=== PATIENT | female | born 1955 | race Hispanic/Latino ===

== ENCOUNTER → 2018-03-21 | Outpatient (CLI) | payer OTHER ==
--- NOTE | 2018-03-21 13:53 | Diagnostic Imaging Report ---
EXAM: CT of the abdomen and pelvis WITHOUT contrast HISTORY: Lower abdominal pain, history of renal calculus, reported history of appendectomy and hysterectomy COMPARISON: None. TECHNIQUE: The abdomen and pelvis were scanned utilizing a multidetector helical scanner. Coronal and sagittal reformats are provided. PROTOCOL: Routine IV CONTRAST: None, which partially limits evaluation of the vascular structures, solid organs and soft tissues. ORAL CONTRAST: None, which further limits sensitivity and specificity of the exam. RADIATION DOSE: Total DLP: 706.64 mGy*cm Estimated effective dose: (DLP x 0.015 x size factor) Dose modulation, iterative reconstruction, and/or weight based adjustment of the mA/kV was utilized to reduce the radiation dose to as low as reasonably achievable. COMPLICATIONS: None FINDINGS: LOWER THORAX: Mild bibasilar atelectasis. HEPATOBILIARY: No focal hepatic lesions. No biliary ductal dilatation. Numerous small peripherally calcified gallstones. No pericholecystic fat stranding. SPLEEN: No splenomegaly. PANCREAS: No focal masses or ductal dilatation. ADRENALS: No discrete adrenal nodule. KIDNEYS/URETERS: No hydronephrosis or solid mass lesions. 2 or 3 punctate calcific densities near the superior pole of the right kidney. PELVIC ORGANS/BLADDER: The urinary bladder is decompressed, which partially limits the evaluation. PERITONEUM / RETROPERITONEUM: No free air or fluid. LYMPH NODES: No pathologically enlarged lymph node. VESSELS: Scattered atherosclerotic vascular calcifications. GI TRACT: No distention or wall thickening identified. BONES: No aggressive osseous lesion or acute fracture. Mild age-indeterminate anterior wedge compression deformity of T11. SOFT TISSUES: A small fat-containing umbilical hernia, without associated inflammatory changes. IMPRESSION: 1. Punctate nonobstructing calcifications near the superior pole of the right kidney, may reflect punctate renal calculi versus vascular calcifications. 2. Cholelithiasis. 3. Age-indeterminate mild anterior wedge compression deformity of T11. Signed by: Reyna Khanna.O., M.M.M. on 03/21/2018 1:50 PM
== END ==
LOC: CT 10:28
PROVIDERS: ATTEND Urology
DX: N20.0 Calculus of kidney (principal); K80.20 Calculus of gallbladder without cholecystitis without obstruction; M43.8X4 Other specified deforming dorsopathies, thoracic region
CPT/HCPCS: 74176